=== PATIENT | male | born 1955 | race Caucasian/White ===

== ENCOUNTER 2021-06-19 14:26 | Outpatient (REF) | payer BC, SELFPAY | END 2021-06-19 14:27 | disposition home or self-care (01) | LOC: HO.HMGCLDS 14:26 | PROVIDERS: Visit Provider Internal Medicine | DX: Z20.822 Contact with and (suspected) exposure to COVID-19 (principal) | CPT/HCPCS: C9803; U0003; U0005 ==

== ENCOUNTER 2022-01-08 16:47 | Outpatient (REF) | payer BC, SELFPAY ==
[2022-01-08 17:53] LABS: Influenza A PCR NEGATIVE (Negative); Influenza B PCR NEGATIVE (Negative); Resp Syncy Virus RNA Qual PCR NEGATIVE (Negative); SARS COV2 PCR INHOUSE NEGATIVE (Negative)
== END 2022-01-08 16:48 | disposition home or self-care (01) ==
LOC: HO.LNP 16:47
PROVIDERS: Visit Provider Emergency Medicine
DX: R68.89 Other general symptoms and signs (principal); Z20.822 Contact with and (suspected) exposure to COVID-19
CPT/HCPCS: 0241U

== ENCOUNTER → 2022-05-23 12:17 | Outpatient (BNVA) | payer BC, SELFPAY | PROVIDERS: PCP Internal Medicine; Visit Provider Dietitian, Registered | DX: E11.9 Type 2 diabetes mellitus without complications (principal) | CPT/HCPCS: 97802 ==

== ENCOUNTER → 2022-08-21 12:13 | Outpatient (BNVA) | payer BC, SELFPAY | PROVIDERS: PCP Internal Medicine; Visit Provider Dietitian, Registered | DX: E11.9 Type 2 diabetes mellitus without complications (principal) | CPT/HCPCS: 97803 ==

== ENCOUNTER → 2022-12-02 09:54 | Outpatient (BNVA) | payer BC, MEDICARE, SELFPAY | PROVIDERS: PCP Internal Medicine; Visit Provider Dietitian, Registered | DX: E11.9 Type 2 diabetes mellitus without complications (principal); Z79.84 Long term (current) use of oral hypoglycemic drugs | CPT/HCPCS: 97803 ==

== ENCOUNTER 2023-07-15 08:35 | Outpatient (AMB) | payer BC, MEDICARE, SELFPAY ==
--- NOTE | 2023-07-15 08:40 | A.OFFVIS_ITS ---
Intake VS Expanded 07/15/23 08:47 Height 5 ft 10 in Weight 187 lb 2.759 oz BMI 26.9 Intake Visit Reasons: T2DM/LVM Allergies No Known Allergies Allergy (Verified 01/08/22 13:49) Medication List - Last Reconciled 07/15/[address], LDN aspirin (Adult Aspirin Regimen) 81 mg PO DAILY atorvastatin 20 mg PO DAILY metformin 850 mg PO TID HPI Nutrition Presentation Details Pt presents for MNT f/u for T2DM. Pt did not bring glucometer to this appt. Pt reports lately including higher sugar foods/pastries and noticing elevated BG> 200 s 11-1 pm : smoothie (oatmilk banana, fro timur berries) , Lebanese muffin butter 5 pm Mohawk lentil soup , apple and pea nut butter and water snacks on slices of cheese Pt admit to dietary indiscretions Exercises 3 times a day of brisk walk, 10 min Most Recent Diabetes Results: No Data to Display Assessment & Plan Assessment & Plan (1) T2DM (type 2 diabetes mellitus): Code(s): E11.9 - Type 2 diabetes mellitus without complications Plan Educate Pt on [id number] darrius meal plan ? Used wt : 81 kg ( 85 kg on 06/2023- has gained 4 kg in 3 months) Est kcal as per MSJ: 1929 (40% carb, 30% fat/prot) Est fluid needs: 2021 ml/d (25 ml/kg bw) Rec fiber: increase to 8-10 g per day and gradually increase to 25 g/d or as tolerated Rec Na: < 2000 mg /d Educate patient on: (R= Reviewed, V = verbalizes understanding N/R= Needs review N/A= not applicable) * Food sources of carbohydrates and serving adequate serving sizes : R V * Difference between complex carbohydrates and simple carbohydrates, role of fiber: R V * Differences between fats (MUFA/PUFA/saturated fats, trans fats) and food sources of various fats: R * Food sources of sodium and salt and healthy modifications for heart health and kidney health: R * How to interpret food labels: V * Healthy Plate method concept: R V * Physical activity: benefits and precaution: R V * Differences in types of sugars: R * Source of calcium in diet: R * relationship of food to bg and weight gain: R Patient Instructions: Resume reducing on sugar and total carbohydrate Aim at less than 60 g at meals - see list of modifications Contact your doctor to discuss your blood glucose level for further assessment. Coding Level of Care Code Nutr Indiv Subseq (79601) Diagnoses T2DM (type 2 diabetes mellitus) E11.9 Time Spent (min) 30
[2023-07-15 08:47] VITALS: BMI 26.9
== END 2023-07-15 09:06 | disposition home or self-care (01) ==
PROVIDERS: PCP Internal Medicine; Visit Provider Dietitian, Registered
DX: E11.9 Type 2 diabetes mellitus without complications (principal)

== ENCOUNTER → 2023-07-15 08:35 | Outpatient (BNVA) | payer BC, MEDICARE, SELFPAY | PROVIDERS: PCP Internal Medicine; Visit Provider Dietitian, Registered | DX: E11.9 Type 2 diabetes mellitus without complications (principal); Z71.3 Dietary counseling and surveillance | CPT/HCPCS: 97803 ==

== ENCOUNTER 2023-10-14 13:49 | Outpatient (AMB) | payer BC, MEDICARE, SELFPAY ==
[2023-10-14 14:09] VITALS: BMI 26.1
--- NOTE | 2023-10-14 14:09 | A.OFFVIS_ITS ---
Intake VS Expanded 10/14/23 14:09 Height 5 ft 10 in Weight 181 lb 14.102 oz BMI 26.1 Intake Visit Reasons: T2DM Allergies No Known Allergies Allergy (Verified 01/08/22 13:49) HPI Nutrition Presentation Details Pt presents for MNT f/u for T2DM Pt reports doing well, working on monitoring blood sugar , did not bring monitor to this appt. He reports monitoring 3 times a week and sees numbers in 130 range. Reports getting into the routine of walking 10 minutes 2-3 times /day Has 3 meals a day following healthy plate method, reducing on high fat foods/pastries food frequency dairy 2-3 serving/d fruits 2-3 serving vege 4 serving/d protein foods: fish 1-2 x/wk, poultry, lean beef and legume reports choosing vegetarian meals 2 x/wk starches: choosing whole grains eating out 2 x/wk Most Recent Diabetes Results: No Data to Display Assessment & Plan Assessment & Plan (1) T2DM (type 2 diabetes mellitus): Code(s): E11.9 - Type 2 diabetes mellitus without complications Plan Educate Pt on [id number] darrius meal plan ? Used wt : 82 kg (09/2023- note weight loss from 85 kg on 06/2023 Est kcal as per MSJ: 1928 (40% carb, 30% fat/prot) Est fluid needs: 2021 ml/d (25 ml/kg bw) Rec fiber: increase to 8-10 g per day and gradually increase to 25 g/d or as tolerated Rec Na: < 2000 mg /d Educate patient on: (R= Reviewed, V = verbalizes understanding N/R= Needs review N/A= not applicable) * Food sources of carbohydrates and serving adequate serving sizes : R V * Difference between complex carbohydrates and simple carbohydrates, role of fiber: R V * Differences between fats (MUFA/PUFA/saturated fats, trans fats) and food sources of various fats: R * Food sources of sodium and salt and healthy modifications for heart health and kidney health: R * How to interpret food labels: V * Healthy Plate method concept: R V * Physical activity: benefits and precaution: R V * Differences in types of sugars: R * Source of calcium in diet: R * relationship of food to bg and weight gain: R, V Patient Instructions: Continue working on following healthy plate method Reduce on portions of pastries , eat slowly, practice mindful eating monitor blood sugar as prescribed by your doctor (ADA guidelines fasting blood sugar goal 80-130 and goal 2 hours after a meal between 80-180, tight control 80-140) Coding Level of Care Code Nutr Indiv Subseq (48951) Diagnoses T2DM (type 2 diabetes mellitus) E11.9 Time Spent (min) 20
== END 2023-10-14 14:20 | disposition home or self-care (01) ==
PROVIDERS: PCP Internal Medicine; Visit Provider Dietitian, Registered
DX: E11.9 Type 2 diabetes mellitus without complications (principal)

== ENCOUNTER → 2023-10-14 13:49 | Outpatient (BNVA) | payer BC, MEDICARE, SELFPAY | PROVIDERS: PCP Internal Medicine; Visit Provider Dietitian, Registered | DX: E11.9 Type 2 diabetes mellitus without complications (principal); Z71.3 Dietary counseling and surveillance | CPT/HCPCS: 97803 ==

== ENCOUNTER 2024-01-13 14:14 | Outpatient (AMB) | payer BC, MEDICARE, SELFPAY ==
[2024-01-13 14:30] VITALS: BMI 26.7
--- NOTE | 2024-01-13 14:30 | A.OFFVIS_ITS ---
VS Expanded 01/13/24 14:30 Height 5 ft 10 in Weight 186 lb 4.65 oz BMI 26.7 Intake Visit Reasons: T2DM/CONFIRMED Allergies No Known Allergies Allergy (Verified 01/08/22 13:49) Nutrition Presentation Details: Pt presents for MNT f/u for T2DM Pt reports FBG ranging [id number] Reports having late meals at night time lately Admits to reducing on physical activity BS Monitoring Most Recent Diabetes Results: No Data to Display Assessment & Plan Assessment & Plan (1) T2DM (type 2 diabetes mellitus): Code(s): E11.9 - Type 2 diabetes mellitus without complications Category: Medical Plan Educate Pt on [id number] darrius meal plan ? Used wt : 82 kg (09/2023- note weight loss from 85 kg on 06/2023), 84 kg (12/2023) Est kcal as per MSJ: 1928 (40% carb, 30% fat/prot) Est fluid needs: 2021 ml/d (25 ml/kg bw) Rec fiber: increase to 8-10 g per day and gradually increase to 25 g/d or as tolerated Rec Na: < 2000 mg /d Educate patient on: (R= Reviewed, V = verbalizes understanding N/R= Needs review N/A= not applicable) * Food sources of carbohydrates and serving adequate serving sizes : R V * Difference between complex carbohydrates and simple carbohydrates, role of fiber: R V * Differences between fats (MUFA/PUFA/saturated fats, trans fats) and food sources of various fats: R * Food sources of sodium and salt and healthy modifications for heart health and kidney health: R * How to interpret food labels: V * Healthy Plate method concept: R V * Physical activity: benefits and precaution: R V * Differences in types of sugars: R * Source of calcium in diet: R * relationship of food to bg and weight gain: R, V Patient Instructions: Resume walking 10 minutes 3 times a day Following healthy plate method at dinner, choose earlier dinner time Coding Level of Care Code Nutr Indiv Subseq (17330) Diagnoses T2DM (type 2 diabetes mellitus) E11.9 Time Spent (min) 22
== END 2024-01-13 14:46 | disposition home or self-care (01) ==
PROVIDERS: PCP Internal Medicine; Visit Provider Dietitian, Registered
DX: E11.9 Type 2 diabetes mellitus without complications (principal)

== ENCOUNTER → 2024-01-13 14:14 | Outpatient (BNVA) | payer BC, MEDICARE, SELFPAY | PROVIDERS: PCP Internal Medicine; Visit Provider Dietitian, Registered | DX: E11.9 Type 2 diabetes mellitus without complications (principal); Z71.3 Dietary counseling and surveillance | CPT/HCPCS: 97803 ==

== ENCOUNTER 2024-04-13 13:23 | Outpatient (AMB) | payer BC, MEDICARE, SELFPAY ==
[2024-04-13 13:45] VITALS: BMI 26.3
--- NOTE | 2024-04-13 13:45 | A.OFFVIS_ITS ---
VS Expanded 04/13/24 13:45 Height 5 ft 10 in Weight 183 lb 10.321 oz BMI 26.3 Intake Visit Reasons: T2DM Allergies No Known Allergies Allergy (Verified 01/08/22 13:49) Nutrition Presentation Details: Pt presents for MNT f/u for T2DM Pt reports not monitoring BG Working on following healthy plate method and mindful of food choices and portions physical activity: walking twice a day 10 min each time ETOH: 1-2 glass wine on occ BS Monitoring Most Recent Diabetes Results: No Data to Display Assessment & Plan Assessment & Plan (1) T2DM (type 2 diabetes mellitus): Code(s): E11.9 - Type 2 diabetes mellitus without complications Category: Medical Plan Educate Pt on [id number] darrius meal plan ? Used wt : 82 kg (09/2023- note weight loss from 85 kg on 06/2023), 84 kg (12/2023) Est kcal as per MSJ: 1928 (40% carb, 30% fat/prot) Est fluid needs: 2021 ml/d (25 ml/kg bw) Rec fiber: increase to 8-10 g per day and gradually increase to 25 g/d or as tolerated Rec Na: < 2000 mg /d Educate patient on: (R= Reviewed, V = verbalizes understanding N/R= Needs review N/A= not applicable) * Food sources of carbohydrates and serving adequate serving sizes : R V * Difference between complex carbohydrates and simple carbohydrates, role of fiber: R V * Differences between fats (MUFA/PUFA/saturated fats, trans fats) and food sources of various fats: R * Food sources of sodium and salt and healthy modifications for heart health and kidney health: R * How to interpret food labels: V * Healthy Plate method concept: R V * Physical activity: benefits and precaution: R V * Differences in types of sugars: R * Source of calcium in diet: R * relationship of food to bg and weight gain: R, V Patient Instructions: Include fiber sources of foods in smoothies by adding a serving of veg Continue walking goal 30 min 3-4 times/wk Resume monitoring blood sugar for self asessment at least fasting blood sugar 3 times a week (blood sugar goal 80 -130) Coding Level of Care Code Nutr Indiv Subseq ([id number]) Diagnoses T2DM (type 2 diabetes mellitus) E11.9 Time Spent (min) 25
== END 2024-04-13 14:00 | disposition home or self-care (01) ==
PROVIDERS: PCP Internal Medicine; Visit Provider Dietitian, Registered
DX: E11.9 Type 2 diabetes mellitus without complications (principal)

== ENCOUNTER → 2024-04-13 13:23 | Outpatient (BNVA) | payer BC, MEDICARE, SELFPAY | PROVIDERS: PCP Internal Medicine; Visit Provider Dietitian, Registered | DX: E11.9 Type 2 diabetes mellitus without complications (principal); Z71.3 Dietary counseling and surveillance | CPT/HCPCS: 97803 ==

== ENCOUNTER 2024-07-28 13:08 | Outpatient (AMB) | payer BC, MEDICARE, SELFPAY ==
[2024-07-28 13:17] VITALS: BMI 25.6
--- NOTE | 2024-07-28 13:17 | A.OFFVIS_ITS ---
VS Expanded 07/28/24 13:17 Height 5 ft 10 in Weight 178 lb 2.136 oz BMI 25.6 Intake Visit Reasons: DM/Confirmed Allergies No Known Allergies Allergy (Verified 01/08/22 13:49) Medication List - Last Reconciled 08/04/[address], LDN aspirin (Adult Aspirin Regimen) 81 mg PO DAILY atorvastatin 20 mg PO DAILY metformin 850 mg PO TID multivitamin 1 tab PO DAILY trazodone 100 mg PO DAILY Nutrition Presentation Details: Pt presents for MNT f/u for T2DM Pt reports most recent A1c at 6.8 % Pt reports working on reducing on some starches: fried starches and pastries Has 3 meals/day , reports choosing high fiber food options (legumes/rice , oatmeal, bran flakes, choosing whole grain options when eating out ) Physical activity walking 2 -3 times/wk taking daily multivitamin pt BS Monitoring Most Recent Diabetes Results: 2 No Data to Display Assessment & Plan Assessment & Plan (1) T2DM (type 2 diabetes mellitus): Code(s): E11.9 - Type 2 diabetes mellitus without complications Category: Medical Plan Educate Pt on [id number] darrius meal plan ? Used wt : 81 kg (07/2024) Est kcal as per MSJ: 192 (40% carb, 30% fat/prot) Est fluid needs: 2021 ml/d (25 ml/kg bw) Rec fiber: increase to 8-10 g per day and gradually increase to 25 g/d or as tolerated Rec Na: < 2000 mg /d Educate patient on: (R= Reviewed, V = verbalizes understanding N/R= Needs review N/A= not applicable) * Food sources of carbohydrates and serving adequate serving sizes : R V * Difference between complex carbohydrates and simple carbohydrates, role of fiber: R V * Differences between fats (MUFA/PUFA/saturated fats, trans fats) and food sources of various fats: R * Food sources of sodium and salt and healthy modifications for heart health and kidney health: R * How to interpret food labels: V * Healthy Plate method concept: R V * Physical activity: benefits and precaution: R V * Differences in types of sugars: R * Source of calcium in diet: R * relationship of food to bg and weight gain: R, V Patient Instructions: Continue working on following healthy plate method Choose food with omega 3 fatty acids (fish, nuts,seeds) Coding Level of Care Code Nutr Indiv Subseq (17911) Diagnoses T2DM (type 2 diabetes mellitus) E11.9 Time Spent (min) 30
--- OUTSIDE RECORDS SUMMARY | 2024-07-28 14:29 | XMS_ITS | Clinical Summary ---
Author Organization [address] Address [address] [place] [address] [place] [address] Phone Care Team Providers Care Rn Night Name Role Phone Emre Fleming MD Primary Care Provider [phone] Allergies No known active allergies Medications Medication Sig Dispensed Refills Start Date End Date Status metFORMIN XR (GLUCOPHAGE-XR) 500 mg 24 hr tablet TAKE 2 TABLETS EVERY MORNING AND 2 TABLETS EVERY EVENING WITH FOOD 03/22/2024 Active busPIRone (BUSPAR) 5 mg tablet Take 0.5 tablets (2.5 mg total) by mouth. 02/03/2024 Active aspirin 81 mg chewable tablet Chew 1 tablet (81 mg total). Active atorvastatin (LIPITOR) 20 mg tablet Take 1 tablet (20 mg total) by mouth 1 (one) time each day. 02/25/2024 Active vitamin B complex (B COMPLEX ORAL) Take by mouth. Active isopropyl alcohol (DY-O-DERM MISC) Take by mouth. Acti ve blood sugar diagnostic (ONETOUCH ULTRA BLUE TEST STRIP [facility] [place]) USE TO TEST BLOOD SUGAR THREE TIMES A DAY 01/17/2021 Active multivitamin (MULTIPLE VITAMINS ORAL) Take by mouth. Active blood-glucose meter kit Inject 1 Lancet into the skin 3 (three) times a day. 06/04/2018 Active lancets lancets USE TO TEST BLOOD SUGAR THREE TIMES A DAY 11/23/2018 Active FLUoxetine (PROzac) 20 mg capsule Take 1 capsule (20 mg total) by mouth 1 (one) time each day. 05/02/2024 Active FLUoxetine (PROzac) 10 mg capsule Take 1 capsule (10 mg total) by mouth 1 (one) time each day. Active traZODone (DESYREL) 50 mg tablet Take 1 tablet (50 mg total) by mouth at bedtime as needed. Active amoxicillin-clavulan ate (AUGMENTIN) 875-125 mg per tablet Take 1 tablet by mouth 2 (two) times a day for 7 days. 14 each 07/15/2024 07/22/2024 Active Problems Problem Noted Date Diagnosed Date Obstructive sleep apnea 04/05/2024 Overview (04/05/2024): [facility] Home Polysomnogram: Date 04/25/2017; AHI 25, Unclassified apneas 0; Obstructive apneas 54; Central apneas 21; Mixed apneas 0; hypopneas 121; average oxygen saturation 95% (lowest 83% without saturations <88% for 5% or more of study) RBM Polysomnogram treatment study. Date 06/17/2017 . SE 20 % SM 22 %; spent 0 % of the study in REM. At the optimal pressure of 5; RDI 0 (AHI 0), Central apneas 0; Obstructive apneas 0; Mixed apneas 0; hypopneas 0; RERAs 0; and, average oxygen saturation was 95%. For the entire study, PLMs ~0. Assessment & Plan (07/15/2024 4:42 PM EST): Has CPAP. Some recent difficulties tolerating machine due to ongoing sinus issues. Uncontrolled type 2 diabetes mellitus with hypoglycemia without coma 04/15/2022 Assessment & Plan (07/15/2024 4:42 PM EST): Recent hemoglobin A1c of 6.7%. Will continue to follow. Patient be due for repeat labs in 1 month. Discussed importance of healthy diet, regular exercise. Pancreatitis 03/20/2022 Anxiety and depression 01/24/2022 Diverticulosis of colon without hemorrhage 07/26 Overview (04/05/2024): 07/26/2019: Colonoscopy. Type 2 diabetes mellitus wit hout complication, without long-term current use of insulin 12/27/2016 Bilateral inguinal hernia 08/15/2016 Overweight 07/19/2016 Hyperlipidemia 07/04/2016 Encounters Date Type Department Care Team Description 07/15/2024 4:30 PM EST Office Visit Adult Medicine [address] [phone] Masood Swan PA Obstructive sleep apnea (Primary Dx); Elevated LFTs; Uncontrolled type 2 diabetes mellitus with hypoglycemia without coma (CMS/HCC); Sinusitis, unspecified chronicity, unspecified location 06/24/2024 Telephone Adult Medicine [address] [phone] Emre Fleming MD Flu Symptoms 05/18/2024 2:00 PM EST Office Visit Endocrinology [address] [phone] Luann Shahid PA Type 2 diabetes mellitus without complication, without long-term current use of insulin (CMS/HCC) (Primary Dx); Mixed hyperlipidemia from Last 3 Months Immunizations Name Administration Dates Next Due Influenza Quadravalent, MDCK , 0.5ml, preservative free (Flucelvax) 6mo and older 03/07/2022,06/25/2021,03/11/2019,04/24 Influenza Quadravalent, MDCK , 0.5ml, with preservative (Flucelvax) 6mo and older 04/30/2017 Influenza trivalent, 0.5mL ( Fluad) 65yo and older 02/25/2024,04/11/2023 Pneumococcal conjugate 20 va lent (Prevnar 20, PCV 20) 2mo and older 02/25/2024 Pneumococcal polysaccharide 23 valent (Pneumovax 23) 2yo and older 07/19/2016 Tdap Tetanus diptheria acell ular pertussis (Boostrix; Adacel) 7yo and older 07/19/2016 Surgical History Surgery Date Site/Laterality Comments COLONOSCOPY 07/26/2019 PROCEDURE: HISTORICAL COLONOSCOPY; COMMENT: Diverticulosis, otherwise negative screening examination. COLONOSCOPY 2008 PROCEDURE: HISTORICAL COLONOSCOPY; COMMENT: negative Medical History Medical History Date Comments Sleep apnea DX:Sleep apnea Hyperlipidemia 07/04/2016 DX:Hyperlipidemi a Diverticulosis of colon with out hemorrhage 07/26/2019 DX:Diverticulosis of colon w ithout hemorrhage; COMMENT: 07/26/2019: Colonoscopy. Family History Medical History Relation Name Comments Diabetes Father Hypertension Father Alzheimer's disease Mother Alzheimer's disease Paternal Grandmother Relation Name Status Comments Father Mother Paternal Grandmother Social History Tobacco Use Types Packs/Day Years Used Date Smoking Tobacco: Former Smokeless Tobacco: Never Tobacco Cessation:Counseling Given: Not Answered Alcohol Use Standard Drinks/Week Comments Yes 0 (1 standard drink = 0.6 oz pur e alcohol) Sex and Gender Information Value Date Recorded Sex Assigned at Male 07/04/2024 8:13 AM EST Gender Identity Male 07/04/2024 8:13 AM EST Sexual Orientation Straight 07/04/2024 8: 13 AM EST Job Start Date Occupation Industry Not on file Not on file Not on file Obstetrics History Last Filed Vital Signs Vital Sign Reading Time Taken Comments Blood Pressure 118/72 07/15/2024 4:05 PM EST Pulse 84 07/15/2024 4:05 PM EST Temperature 36.3 ??C (97.4 ??F) 07/15/2024 4:05 PM ES T Respiratory Rate 14 07/15/2024 4:05 PM EST Oxygen Saturation 98% 07/15/2024 4:05 PM EST Inhaled Oxygen Concentration - - Weight 81.2 kg (179 lb) 07/15/2024 4:05 PM EST Height 172.7 cm (5' 8 ) 07/15/2024 4:05 PM EST Body Mass Index 27.22 07/15/2024 4:05 PM EST Plan of Treatment Upcoming Encounters Date Type Department Care Team (Late st Contact Info) Description 09/21/2024 2:00 PM EDT Office Visit Endocrinology [address] [phone] Luann Shahid PA [address] [place], [place] 10/13/2024 9:30 AM EDT Office Visit Adult Medicine [address] [phone] Masood Swan PA [address] [place], [place] 01/18/2025 9:00 AM EDT Office Visit Orthopedic Surgery - [place] [address] [facility] [address] [place] [id number] [place], DPM [address] [address] Health Maintenance Due Date Last Done Comments Zoster Vaccines (1 of 2) 12/12/2007 Abdominal Aortic Aneurysm (AAA) Screen 06/01/2022 Medicare Annual Wellness Visit 06/01/2022 Social Influencers of Health Screening 06/01/2022 Diabetes: Annual Retina Eye Exam 11/14/2023 11/13/2022 COVID-19 Vaccine ( season) 2024 04/16/2021, 10/09/2020, 09/17/2020 Falls Risk Assessment 04/11/2024 04/11/2023 Diabetes: Blood Sugar Control Test (HGBA1C) 11/08/2024 05/11/2024, 01/13/2024, 01/13/2024 Depression Screening 02/24/2025 02/25/2024 Diabetes: Annual Urine Albumin-Creatinine Ratio (uACR) 05/11/2025 05/11/2024, 05/07/2023 Diabetes: Annual GFR (Glomerular Filtration Rate) 05/11/2025 05/11/2024, 05/16/2023 Diabetes: Annual Foot Exam 07/15/2025 07/15/2024, Cholesterol Screening (Lipid Panel) 05/11/2029 05/11/2024, 05/07/2023 Colorectal Cancer Screening: Colonoscopy 07/26/2029 07/26/2019 DTaP,Tdap,and Td Vaccines (3 - Td or Tdap) 10/07/2032 10/07/2022, 07/19/2016 RSV Immunization Patients 60+ Years Old (1 - 1-dose 75+ series) 2032 Hepatitis C Screening Completed 05/07/2023 Influenza Vaccine Completed 02/25/2024, , 03/07/2022, Additional history exists Pneumococcal Vaccine: 65+ Years Completed 02/25/2024, 07/19/2016 HIB Vaccines Aged Out No longer eligi ble based on patient's age to complete this topic HPV Vaccines Aged Out No longer eligi ble based on patient's age to complete this topic Hepatitis A Vaccines Aged Out No long er eligible based on patient's age to complete this topic Hepatitis B Vaccines Aged Out No long er eligible based on patient's age to complete this topic IPV Vaccines Aged Out No longer eligi ble based on patient's age to complete this topic MMR Vaccines Aged Out No longer eligi ble based on patient's age to complete this topic Meningococcal ACWY Vaccine Aged Out N o longer eligible based on patient's age to complete this topic RSV Immunization Patients Under 20 months Aged Out No longer eligible based on patient's age to complete this topic Varicella Vaccines Aged Out No longer eligible based on patient's age to complete this topic Procedures Procedure Name Priority Date/Time Associated Diagnosis Comments LIPID PANEL WITH REFLEX TO DIRECT LDL Routine 05/11/2024 7:59 AM EST Type 2 diabetes mellitus without complication, without long-term current use of insulin ([facility]) Hyperlipidemia MICROALBUMIN CREATININE URINE RATIO Routine 05/11/2024 7:59 AM EST Type 2 diabetes mellitus without complication, without long-term current use of insulin ([facility]) Hyperlipidemia COMPREHENSIVE METABOLIC PANEL Routine 05/11/2024 7:59 AM EST Type 2 diabetes mellitus without complication, without long-term current use of insulin ([facility]) Hyperlipidemia HEMOGLOBIN A1C Routine 05/11/2024 7:59 AM EST Type 2 diabetes mellitus without complication, without long-term current use of insulin ([facility]) Hyperlipidemia DEPRESSION SCREENING Routine 02/25/2024 HEPATITIS C SCREENING Routine 05/07/2023 FALLS RISK ASSESSMENT Routine 04/11/2023 DIABETES FOOT EXAM Routine 04/11/2023 DIABETES EYE EXAM Routine 11/13/2022 COLONOSCOPY Routine 07/26/2019 from Last 3 Months or Most Recently Relevant to Health Maintenance Results * Lipid panel with reflex to direct LDL (05/11/2024 7:59 AM EST) Cholesterol 127 0 - 200 mg/dL LAB CHEMISTRY METHOD 05/11/2024 10:20 AM EST [facility] Triglycerides 97 0 - 150 mg/dL LAB CHEMISTRY METHOD 05/11/2024 10:20 AM EST [facility] HDL 53 >=40 mg/dL LAB CHEMISTRY METHOD 05/11/2024 10:20 AM EST [facility] LDL Calculated 55 0 - 100 mg/dL LAB CHEMISTRY METHOD 05/11/2024 10:20 AM EST [facility] VLDL Cholesterol Tommy 19.4 mg/dL LAB CHEMISTRY METHOD 05/11/2024 10:20 AM [facility] Non HDL Chol. (LDL+VLDL) 74 <145 mg/dL LAB CHEMISTRY METHOD 05/11/2024 10:20 AM [facility] Chol/HDL Ratio 2.4 0.0 - 4.4 LAB CHEMISTRY METHOD 05/11/2024 10:20 AM [facility] Blood Venous blood specimen / Unknown Venipuncture / Unknown 05/11/2024 7:59 AM EST 05/11/2024 8:00 AM EST Luann MARIE LAB BLOOD ORDERABLES [facility] [address] [place] [address], * Microalbumin creatinine urine ratio (05/11/2024 7:59 AM EST) Creatinine, Urine 167.0 mg/dL LAB CHEMISTRY METHOD 05/11/2024 10:38 AM EST [facility] Microalb, Ur 12.8 0.0 - 29.0 mg/L LAB CHEMISTRY METHOD 05/11/2024 10:38 AM EST [facility] Microalb/Creat Ratio 8 <30 mg/g creat LAB CHEMISTRY METHOD 05/11/2024 10:38 AM EST [facility] Urine Urine specimen obtained by clean catch procedure / Unknown Non-blood Collection / Unknown 05/11/2024 7:59 AM EST 05/11/2024 8:00 AM EST Luann MARIE LAB URINE ORDERABLES Performing Organization Address [facility]/ZIP Co de Phone Number [facility] [address] [place] [address], [place] [phone] * (ABNORMAL) Hemoglobin A1c (05/11/2024 7:59 AM EST) Hemoglobin A1C 6.7(H) <6.5 % LAB CHEMISTRY METHOD 05/11/2024 9:53 PM [facility] Mean Bld Glu Estim. 146 mg/dL LAB CHEMISTRY METHOD 05/11/2024 9:53 PM [facility] Blood Venous blood specimen / Unknown Venipuncture / Unknown 05/11/2024 7:59 AM EST 05/11/2024 8:00 AM EST Luann MARIE LAB BLOOD ORDERABLES Performing Organization Address [facility]/ZIP Co de Phone Number [facility] [address] [place] [address], [place] [phone] * (ABNORMAL) Comprehensive metabolic panel (05/11/2024 7:59 AM EST) Sodium 138 133 - 145 mmol/L LAB CHEMISTRY METHOD 05/11/2024 10:20 AM [facility] Potassium 4.4 3.5 - 5.5 mmol/L LAB CHEMISTRY METHOD 05/11/2024 10:20 AM [facility] Chloride 102 96 - 110 mmol/L LAB CHEMISTRY METHOD 05/11/2024 10:20 AM [facility] CO2 29 21 - 32 mmol/L LAB CHEMISTRY METHOD 05/11/2024 10:20 AM [facility] Anion Gap 7 3 - 11 LAB CHEMISTRY METHOD 05/11/2024 10:20 AM [facility] Glucose 162(H) 70 - 100 mg/dL LAB CHEMISTRY METHOD 05/11/2024 10:20 AM [facility] BUN 14 5 - 25 mg/dL LAB CHEMISTRY METHOD 05/11/2024 10:20 AM [facility] Creatinine 0.93 0.70 - 1.30 mg/dL LAB CHEMISTRY METHOD 05/11/2024 10:20 AM [facility] eGFR 91 >=60 mL/min/1. 73m2 LAB CHEMISTRY METHOD 05/11/2024 10:20 AM [facility] Comment:Calculation based on the??Chronic Kidney Disease Epidemiology Collaboration (CKD-EPI) equation refit??without adjustment for race. BUN/Creatinine Ratio 15.1 LAB CHEMISTRY METHOD 05/11/2024 10:20 AM [facility] Calcium 9.6 8.5 - 10.5 mg/dL LAB CHEMISTRY METHOD 05/11/2024 10:20 AM [facility] AST (SGOT) 29 10 - 42 unit/L LAB CHEMISTRY METHOD 05/11/2024 10:20 AM [facility] ALT (SGPT) 61(H) 10 - 60 unit/L LAB CHEMISTRY METHOD 05/11/2024 10:20 AM [facility] Alkaline Phosphatase 58 42 - 121 unit/L LAB CHEMISTRY METHOD 05/11/2024 10:20 AM [facility] Total Protein 7.0 6.0 - 8.0 g/dL LAB CHEMISTRY METHOD 05/11/2024 10:20 AM [facility] Albumin 4.0 3.2 - 5.0 g/dL LAB CHEMISTRY METHOD 05/11/2024 10:20 AM EST [facility] Total Bilirubin 1.2 0.0 - 1.4 mg/dL LAB CHEMISTRY METHOD 05/11/2024 10:20 AM EST [facility] Blood Venous blood specimen / Unknown Venipuncture / Unknown 05/11/2024 7:59 AM EST 05/11/2024 8:00 AM EST Luann MARIE LAB BLOOD ORDERABLES [facility] [address] [place] [address], * Depression Screening (02/25/2024) [facility] Depression Screening abstracted Historical Provider MD MARIN MAINCHEN * Hepatitis C Screening (05/07/2023) [facility] Hepatitis C Screening abstracted Historical Provider MD MARIN MAINCHEN * Falls Risk Assessment (04/11/2023) [facility] Falls Risk Assessment abstracted Historical Provider MD MARIN MAINCHEN * Diabetes Foot Exam (04/11/2023) [facility] Diabetes: Annual Foot Exam abstracted Historical Provider MD MARIN MAINCHEN * Diabetes Eye Exam (11/13/2022) [facility] Diabetes: Annual Retina Eye Exam abstract [facility] Historical Provider MD TOMAS MICHEL * Colonoscopy (07/26/2019) [facility] Colonoscopy no interpretation , abstracted Anatomical Region Laterality Modality Other Historical Provider MD TOMAS MICHEL E from Last 3 Months or Most Recently Relevant to Health Maintenance Care Teams Rn Night Relationship Specialty Start Date End Date Emre Fleming MD [address] [place] [address] PCP - General Internal Medicine 06/28/16
--- OUTSIDE RECORDS SUMMARY | 2024-07-28 14:29 | XMS_ITS | Encounter Summary ---
Author Organization [facility] Address [address] [place] [address] Care Team Providers Care Chief Dispatcher Service Name Role Phone Emre Fleming MD Primary Care Provider [phone] Reason for Visit * Reason Comments Follow-up 4 month follow up viral sx Cold sx hanging on s ashley beginning of this month. Encounter Details Date Type Department Care Team (Late st Contact Info) Description 07/15/2024 4:30 PM EST Office Visit Adult Medicine [facility] [place] [address] [place] [address] Masood Swan PA [address] [place] [address] Obstructive sleep apnea (Primary Dx); Elevated LFTs; Uncontrolled type 2 diabetes mellitus with hypoglycemia without coma (CMS/HCC); Sinusitis, unspecified chronicity, unspecified location Social History Tobacco Use Types Packs/Day Years [...] file Not on file Not on file documented as of this encounter Last Filed Vital Signs Vital Sign Reading [...] Mass Index 27.22 07/15/2024 4:05 PM EST documented in this encounter Ordered Prescriptions Prescription Sig Dispensed Refills Start Date End Da te amoxicillin-clavulanate (AUGMENTIN) 875-125 mg per tablet Take 1 tablet by mouth 2 (two) times a day for 7 days. 14 each 07/15/2024 07/22/2024 documented in this encounter Progress Notes * FRANK Ulloa - 07/15/2024 4:30 PM ESTAssociated Problem(s): Obstructive sleep apnea Has CPAP. Some recent difficulties tolerating machine due to ongoing sinus issues. * FRANK Ulloa - 07/15/2024 4:30 PM ESTAssociated Problem(s): Uncontrolled type 2 diabetes mellitus with hypoglycemia without coma (CMS/HCC) Recent hemoglobin A1c of 6.7%. Will continue to follow. Patient be due for repeat labs in 1 month. Discussed importance of healthy diet, regular exercise. * FRANK Ulloa - 07/15/2024 4:30 PM EST PATIENT'S PCP: Emre Fleming MD LAST VISIT IN THIS DEPARTMENT: 06/24/2024 LAST VISIT WITH THIS PROVIDER: Visit date not found Jarred Vale is a 68 y.o. (: 1955) male who presents today for: Chief Complaint Patient presents with Follow-up 4 month follow up viral sx Cold sx hanging on since beginning of this month. Assessment/Plan Assessment & Plan Obstructive sleep apnea Has CPAP. Some recent difficulties tolerating machine due to ongoing sinus issues. Elevated LFTs We will recheck LFTs given his previous mild elevation. I expect to see some improvement with his weight loss and improving blood sugar control. Orders: Comprehensive metabolic panel; Future Hemoglobin A1c; Future Uncontrolled type 2 diabetes mellitus with hypoglycemia without coma ([facility]) Recent hemoglobin A1c of 6.7%. Will continue to follow. Patient be due for repeat labs in 1 month. Discussed importance of healthy diet, regular exercise. Sinusitis, unspecified chronicity, unspecified location Patient symptoms most likely started off as a viral in nature. There may also be an allergic component. Given his duration of symptoms, I decided to cover the patient with Augmentin. Discussed medication side effects. Discussed signs symptoms that warrant immediate reevaluation. No follow-ups on file. Subjective 68-year-old gentleman presents for evaluation of his medical conditions. He has some ongoing sinus issues since the beginning of the year. He describes sinus pressure, and a dry hacking cough. Otherwise, he overall feels well. He has no specific complaints or concerns. He has an eye exam scheduledfor February. Review of Systems Constitutional: Negative for chills, diaphoresis and fever. HENT: Negative for ear pain and sore throat. Eyes: Negative for discharge. Respiratory: Negative for cough and shortness of breath. Cardiovascular: Negative for chest pain, palpitations and leg swelling. Gastrointestinal: Negative for abdominal pain. Endocrine: Negative for polyuria. Genitourinary: Negative for difficulty urinating. Musculoskeletal: Negative for gait problem. Skin: Negative for rash. Neurological: Negative for syncope and weakness. The following portions of the patient's chart were reviewed in this encounter and updated as appropriate: Tobacco Allergies Meds Problems Med Hx Surg Hx Fam Hx Objective Visit Vitals BP 118/72 Pulse 84 Temp 36.3 ??C (97.4 ??F) (Temporal) Resp 14 Ht 1.727 m (68 ) Wt 81.2 kg (179 lb) SpO2 98% BMI 27.22 kg/m?? Smoking Status Former BSA 1.95 m?? SpO2: 98 % BP Readings from Last 3 Encounters: 07/15/24 118/72 05/18/24 100/75 02/25/24 118/70 Wt Readings from Last 3 Encounters: 07/15/24 81.2 kg (179 lb) 05/18/24 83 kg (183 lb) 02/25/24 83.3 kg (183 lb 9.6 oz) Physical Exam Constitutional: General: He is not in acute distress. Appearance: Normal appearance. He is not ill-appearing. Eyes: Conjunctiva/sclera: Conjunctivae normal. Pupils: Pupils are equal, round, and reactive to light. Cardiovascular: Rate and Rhythm: Normal rate and regular rhythm. Heart sounds: No murmur heard. Pulmonary: Effort: Pulmonary effort is normal. Breath sounds: Normal breath sounds. No wheezing, rhonchi or rales. Abdominal: General: Bowel sounds are normal. There is no distension. Palpations: Abdomen is soft. There is no mass. Hernia: No hernia is present. Musculoskeletal: General: Normal range of motion. Cervical back: Normal range of motion and neck supple. Right lower leg: No edema. Left lower leg: No edema. Skin: General: Skin is warm and dry. Capillary Refill: Capillary refill takes less than 2 seconds. Coloration: Skin is not jaundiced. Findings: No bruising, erythema or rash. Neurological: General: No focal deficit present. Mental Status: He is alert and oriented to person, place, and time. Mental status is at baseline. Sensory: No sensory deficit. Psychiatric: Mood and Affect: Mood normal. Behavior: Behavior normal. Thought Content: Thought content normal. Judgment: Judgment normal. No Known Allergies Current Outpatient Medications Medication Instructions amoxicillin-clavulanate (AUGMENTIN) 875-125 mg per tablet 1 tablet, oral, 2 times daily aspirin 81 mg, oral atorvastatin (LIPITOR) 20 mg tablet 1 tablet, oral, Daily blood sugar diagnostic (ONETOUCH ULTRA BLUE TEST STRIP [facility] USE TO TEST BLOOD SUGAR THREE TIMES A DAY blood-glucose meter kit 1 Lancet, intradermal, 3 times daily busPIRone (BUSPAR) 2.5 mg FLUoxetine (PROZAC) 20 mg, Daily FLUoxetine (PROZAC) 10 mg, oral, Daily isopropyl alcohol (DY-O-DERM [facility] oral lancets lancets USE TO TEST BLOOD SUGAR THREE TIMES A DAY metFORMIN XR (GLUCOPHAGE-XR) 500 mg 24 hr tablet TAKE 2 TABLETS EVERY MORNING AND 2 TABLETS EVERY EVENING WITH FOOD multivitamin (MULTIPLE VITAMINS ORAL) oral traZODone (DESYREL) 50 mg, oral, Nightly PRN vitamin B complex (B COMPLEX ORAL) oral IMAGING/LABORATORY: None FRANK Ulloa ADULT MEDICINE [address] documented in this encounter Plan of Treatment Upcoming Encounters Date Type Department Care Team (Late st Contact Info) Description 09/21/2024 2:00 PM EDT Office Visit Endocrinology [address] [phone] Luann Shahid PA [address] [place] [address] 10/13/2024 9:30 AM EDT Office Visit [address] [phone] Masood Swan PA [address] [place] [address] 01/18/2025 9:00 AM EDT Office Visit Orthopedic Surgery - [place] [address] [phone] [place] Brit[place], DPM [address] [address] Scheduled Orders Name Type Priority Associated Diagnoses Orde r Schedule Comprehensive metabolic panel Lab Routine Elevated LFTs 1 Occurrences starting 07/15/2024 until 07/15/2025 Hemoglobin A1c Lab Routine Elevated LFTs 1 Occurrences starting 07/15/2024 until 07/15/2025 documented as of this encounter Visit Diagnoses Diagnosis Obstructive sleep apnea- Primary Obstructive sleep apnea (adult) (pediatric) Elevated LFTs Other abnormal blood chemistry Uncontrolled type 2 diabetes mellitus with hypoglycemia without coma (CMS/HCC) Sinusitis, unspecified chronicity, unspecified location documented in this encounter Historical Medications * This list may reflect changes made after this encounter. Medication Sig Dispensed Refills Start Date End Date traZODone (DESYREL) 50 mg tablet Take 1 tablet (50 mg total) by mouth at bedtime as needed. FLUoxetine (PROzac) 10 mg capsule Take 1 capsule (10 mg total) by mouth 1 (one) time each day. added in this encounter Orders Health Maintenance Count Last Ordered Date Firs t Ordered Date HM DIABETES FOOT EXAM 1 07/15/2024 documented in this encounter Care Teams Chief Dispatcher Service Relationship Specialty Start Date End Date Emre Fleming MD [address] [place] [id number] PCP - General Internal Medicine 06/28/16 documented as of this encounter
== END 2024-07-28 13:51 | disposition home or self-care (01) ==
PROVIDERS: PCP Internal Medicine; Visit Provider Dietitian, Registered
DX: E11.9 Type 2 diabetes mellitus without complications (principal)

== ENCOUNTER → 2024-07-28 13:08 | Outpatient (BNVA) | payer BC, MEDICARE, SELFPAY | PROVIDERS: PCP Internal Medicine; Visit Provider Dietitian, Registered | DX: E11.9 Type 2 diabetes mellitus without complications (principal); Z71.3 Dietary counseling and surveillance | CPT/HCPCS: 97803 ==

== ENCOUNTER 2025-03-30 14:03 | Outpatient (AMB) | payer BC, MEDICARE, SELFPAY ==
[2025-03-30 14:41] VITALS: BMI 25.7
--- NOTE | 2025-03-30 14:41 | A.OFFVIS_ITS ---
VS Expanded 03/30/25 14:41 Height 5 ft 10 in Weight 179 lb 7.3 oz BMI 25.7 Intake Visit Reasons: t2dm Allergies No Known Allergies Allergy (Verified 01/08/22 13:49) Nutrition Presentation Details: Pt presents for MNT f/u for T2DM Pt reports noticing blood sugars in the 190s in the fasting state, pt did not bring glucometer to this appt No wt changes since last visit Pt reports typically having 3 meals/d, admits to late evening meal or snack often high sugar dessert as bedtime snack (this may be a contributing factor to elevated FBG) Walking 1 x/wk for 30-45 minutes, trying to incorporate 10 min brisk walks per day food frequency fruits: 1-2/d fish 0-1/wk veg: daily 1-2xd dairy : 3 c/d starches > 20 beverages: water, tea, low sugar beverages pastries : daily HPJ-Lnxcsyh-Gf.Jeor Equation Height: 5 ft 10 in Weight: 179 lb Resting Metabolic Rate: 1597.73 Calculated Activity Level: Sedentary Calories Needed to Maintain Weight: 1917.28 Assessment & Plan Assessment & Plan (1) T2DM (type 2 diabetes mellitus): Code(s): E11.9 - Type 2 diabetes mellitus without complications Category: Medical Plan Educate Pt on 9500-4156 darrius meal plan ? Used wt : 81 kg (07/2024), 10/ Est kcal as per MSJ: 1928 (40% carb, 30% fat/prot) Est fluid needs: 2021 ml/d (25 ml/kg bw) Rec fiber: increase to 8-10 g per day and gradually increase to 25 g/d or as tolerated Rec Na: < 2000 mg /d Educate patient on: (R= Reviewed, V = verbalizes understanding N/R= Needs review N/A= not applicable) * Food sources of carbohydrates and serving adequate serving sizes : R V * Difference between complex carbohydrates and simple carbohydrates, role of fiber: R V * Differences between fats (MUFA/PUFA/saturated fats, trans fats) and food sources of various fats: R * Food sources of sodium and salt and healthy modifications for heart health and kidney health: R,v * How to interpret food labels: V * Healthy Plate method concept: R V * Physical activity: benefits and precaution: R V * Differences in types of sugars: R * Source of calcium in diet: R * relationship of food to bg and weight gain: R, V Patient Instructions: Switch to yogurt as bedtime snack (or low carb ice cream) Engage in walking 10 minutes 3 times Coding Level of Care Code Nutr Indiv Subseq (14541) Diagnoses T2DM (type 2 diabetes mellitus) E11.9 Time Spent (min) 30
[2025-03-31 12:17] VITALS: BMI 25.7
== END 2025-03-30 15:23 | disposition home or self-care (01) ==
LOC: HO.ENCR 14:03
PROVIDERS: PCP Internal Medicine; Visit Provider Dietitian, Registered
DX: E11.9 Type 2 diabetes mellitus without complications (principal)

== ENCOUNTER → 2025-03-30 14:03 | Outpatient (BNVA) | payer BC, MEDICARE, SELFPAY | PROVIDERS: PCP Internal Medicine; Visit Provider Dietitian, Registered | DX: E11.9 Type 2 diabetes mellitus without complications (principal) | CPT/HCPCS: 97803 ==